=== PATIENT | female | born 1995 | race Native Hawaiian/Other Pacific Islander ===

== ENCOUNTER 2017-10-31 02:19 | Emergency (ER) | payer OTHER ==
--- NOTE | 2017-10-31 02:58 | ED PDOC ---
HPI: Abdomen Time Seen by Provider: 10/31/17 02:35 Chief Complaint (Nursing): Abdominal Pain Chief Complaint (Provider): abdominal pain History Per: Patient History/Exam Limitations: no limitations Onset/Duration Of Symptoms: Hrs (2) Location Of Pain/Discomfort: Suprapubic Additional Complaint(s): 22 y/o female presents for evaluation of suprapubic abdominal pain x 2 hours. Patient states then traveled up to upper abdomen and then down to right lower abdomen. Symptoms improved with herbal pain supplement. Denies fever, nausea/ vomiting, chest pain, shortness of breath, palpitations, changes in bowel movements, urinary symptoms, vaginal bleeding/discharge. Past Medical History Reviewed: Historical Data, Nursing Documentation, Vital Signs Vital Signs: Last Vital Signs Temp 98.2 F 10/31/17 02:49 Pulse 100 H 10/31/17 02:49 Resp 18 10/31/17 02:49 BP 136/89 10/31/17 02:49 Pulse Ox 100 10/31/17 05:40 - Medical History PMH: No Chronic Diseases - Surgical History Surgical History: No Surg Hx - Family History Family History: States: No Known Family Hx - Allergies Allergies/Adverse Reactions: Allergies Allergy/AdvReac Type Severity Reaction Status Date / Time Penicillins Allergy Intermediate ITCHING Verified 10/31/17 02:46 Review of Systems ROS Statement: Except As Marked, All Systems Reviewed And Found Negative Gastrointestinal: Positive for: Abdominal Pain Physical Exam - Reviewed Nursing Documentation Reviewed: Yes Vital Signs Reviewed: Yes - Physical Exam Appears: Positive for: Well, Non-toxic, No Acute Distress Head Exam: Positive for: ATRAUMATIC, NORMAL INSPECTION, NORMOCEPHALIC Skin: Positive for: Normal Color Eye Exam: Positive for: Normal appearance ENT: Positive for: Normal ENT Inspection Cardiovascular/Chest: Positive for: Regular Rate, Rhythm Respiratory: Positive for: Normal Breath Sounds Gastrointestinal/Abdominal: Positive for: Bowel Sounds, Soft, Tenderness ( suprapubic, rlq, LUQ). Negative for: Distended, Guarding, Rebound Back: Positive for: Normal Inspection Extremity: Positive for: Normal ROM Neurologic/Psych: Positive for: Alert, Oriented - Laboratory Results Result Diagrams: 10/31/17 03:23 10/31/17 04:17 - ECG O2 Sat by Pulse Oximetry: 100 - Progress ED Course And Treament: labs, urine WBC elevated CT abd/pelvis ordered to r/out appendicitis Disposition - Clinical Impression Clinical Impression: Abdominal pain - Disposition Disposition Time: 06:00 Condition: STABLE Patient Signed Over To: Clovis Calix Handoff Comments: pending CT
[2017-10-31 03:27] LABS: SQUAMOUS EPITHIAL 2 /hpf (0-5); URINE BACTERIA RARE (<OCC); URINE BILIRUBIN NEGATIVE (NEGATIVE); URINE BLOOD NEGATIVE (NEGATIVE); URINE CLARITY SLIGHTY-CLOUDY (Clear); URINE COLOR YELLOW (YELLOW); URINE GLUCOSE (UA) NEG (Normal); URINE LEUKOCYTE ESTERASE NEG Leu/uL (Negative); URINE PROTEIN NEGATIVE (NEGATIVE); URINE UROBILINOGEN 0.2-1.0 mg/dL (0.2-1.0)
[2017-10-31 03:38] LABS: BASO % 0.1 % (0.0-2.0); EOS # 0.1 K/uL (0.0-0.7); EOS % 0.8 % (0.0-4.0); HEMOGLOBIN 12.5 g/dL (12.0-16.0); LYMPH % 7.7 % (20.0-40.0); MEAN CELL VOLUME 82.8 fl (81.0-99.0); MEAN CORPUSCULAR HEMOGLOBIN 27.5 pg (27.0-31.0); MEAN CORPUSCULAR HGB CONC 33.3 g/dL (33.0-37.0); MEAN PLATELET VOLUME 8.8 fl (7.2-11.7); MONO # 0.4 K/uL (0.0-0.8); MONO % 3.3 % (0.0-10.0); NEUT % 88.1 % (50.0-75.0); PLATELET COUNT 170 K/uL (130-400); RBC 4.53 Mil/uL (3.80-5.20); RED CELL DISTRIBUTION WIDTH 13.8 % (11.5-14.5); WHITE BLOOD COUNT 12.5 K/uL (4.8-10.8)
[2017-10-31] MEDS ORDERED: Iohexol 240 (50 ml) PO ONE (03:49)
[2017-10-31] MEDS ORDERED: Iohexol 240 (50 ml) ONE (04:03)
[2017-10-31 04:37] LABS: ALB/GLOB RATIO 1.3 (1.0-2.1); ALBUMIN 4.5 g/dL (3.5-5.0); ALT/SGPT 51 U/L (9-52); AST/SGOT 52 U/L (14-36); BLOOD UREA NITROGEN 11 mg/dl (7-17); CALCIUM 9.3 mg/dL (8.4-10.2); GFR AFRICAN-AMERICAN > 60; GFR NON-AFRICAN AMERICAN > 60
[2017-10-31] MEDS ORDERED: Sodium Chloride 0.9% 50 ML IV ONE (05:35)
[2017-10-31] MEDS ORDERED: Iohexol 300 100 ML IJ ONE (05:35)
[2017-10-31 07:48] LABS: BANDS 4 % (0-2); LYMPHOCYTE 12 % (20-50); MONOCYTE 3 % (0-10); NEUTROPHIL 81 % (42-75); TOTAL CELLS COUNTED 100
[2017-10-31 07:49] LABS: PLATELET ESTIMATE NORMAL (NORMAL)
[2017-10-31 08:06] VITALS: BP 118/79; PULSE 60; RESP 16; TEMP 98; O2SAT 99
--- NOTE | 2017-10-31 12:29 | CT ---
PROCEDURE: CT Abdomen and Pelvis with contrast HISTORY: abd pain COMPARISON: None. TECHNIQUE: Following oral and intravenous contrast administration, a CT examination of the abdomen and pelvis performed from the domes of the diaphragms to the symphysis pubis with reformatted datasets provided not only axial but also sagittal and coronal series. Contrast dose: Omnipaque 300, 90 cc Radiation dose: Total exam DLP = 219.26 mGy-cm. This CT exam was performed using one or more of the following dose reduction techniques: Automated exposure control, adjustment of the mA and/or kV according to patient size, and/or use of iterative reconstruction technique. FINDINGS: LOWER THORAX: Unremarkable. LIVER: Unremarkable. No gross lesion or ductal dilatation. GALLBLADDER AND BILE DUCTS: Unremarkable. PANCREAS: Unremarkable. No gross lesion or ductal dilatation. SPLEEN: Unremarkable. ADRENALS: Unremarkable. No mass. KIDNEYS AND URETERS: Unremarkable. No hydronephrosis. No solid mass. VASCULATURE: Unremarkable. No aortic aneurysm. BOWEL: Unremarkable. No obstruction. No gross mural thickening. APPENDIX: The pattern is not well identified. No definite CT pattern suggest appendicitis at this time. PERITONEUM: Unremarkable. No free fluid. No free air. LYMPH NODES: Unremarkable. No enlarged lymph nodes. BLADDER: Unremarkable. REPRODUCTIVE: 2.1 cm left adnexal cyst with limited fluid in the cul sac may indicate partial rupture. Clinically correlate. BONES: No acute fracture. OTHER FINDINGS: None. IMPRESSION: Small left ovarian cyst measuring 2.1 cm which trace fluid cul-de-sac suggesting partial rupture. Transvaginal pelvic ultrasound can be utilized for further characterization if clinically warranted. No acute abdominal findings as discussed above. . Concordant preliminary report from [facility], 12/23/2017.
== END 2017-10-31 08:07 | disposition home or self-care (01) ==
LOC: H.ER 02:19
DX: N83.202 Unspecified ovarian cyst, left side (principal); Z88.0 Allergy status to penicillin
CPT/HCPCS: 74177; 80053; 81003; 81025; 83690; 85025; 87086; 96374; 99284; J1885; Q9966; Q9967